=== PATIENT | female | born 1965 | race African-American/Black ===

== ENCOUNTER 2016-08-16 16:08 | Emergency (ER) | payer SELFPAY ==
[~2016-08-16] VITALS: Ht 170.2 cm; Wt 145.0 kg
[~2016-08-16 16:08] MED LIST: AMLO5 PO; DICL50TA3 PO; METF500T PO; ROBA750T PO
[2016-08-16 16:10] VITALS: BP 168/99; PULSE 91; RESP 16; TEMP 98.5; O2SAT 96
--- NOTE | 2016-08-16 17:14 | PD ---
HPI Chief Complaint: Musculoskeletal Complaint Time Seen by Provider: 17:14 Travel History International Travel<30 days: No Contact w/Intl Traveler<30days: No Traveled to known affect area: No History of Present Illness HPI 50-year-old female presents to the emergency Department with complaint of acute exacerbation of chronic low back pain with right-sided sciatica for the past 3 weeks. History of chronic low back pain since 1998. Symptoms are similar to past symptoms. Has history of sciatica also. 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 Denies traumatic injury. Denies encopresis, incontinence, saddle anesthesias. Denies paresthesias, loss of sensation, decreased range of motion, decreased strength to bilateral lower extremity. Is ambulatory with normal gait. Denies fever, chills, nausea, vomiting. Denies IV drug use. Denies cancer. Has tried ibuprofen, Tylenol, [id number] pain patches, [id number] topical rubs to the area with no relief of symptoms. No known allergies. History of hypertension and diabetes. No other modifying factors or associated signs and symptoms. PFSH Past Medical History Arthritis: No Asthma: Yes Blood Disorders: No Anxiety: Yes Depression: Yes Heart Rhythm Problems: No Cancer: No High Cholesterol: No Chest Pain: No Congestive Heart Failure: No COPD: No Cerebrovascular Accident: No Diabetes: Yes Diminished Hearing: No GERD: No Glaucoma: No Genitourinary: Yes (UTI AFTER HAVING HYSTERECTOMY) Headaches: No Hepatitis: No Hiatal Hernia: No Hypertension: Yes Psychiatric: Yes Reproductive: Yes Respiratory: Yes (ASTHMA RESOLVED) Immunizations Current: No Thyroid Disease: Yes PNEUMOCCOCAL Vaccine (Year): 2 ?: Not : 3 Para: 3 Ovarian Cysts: Yes Tubal Ligation: Yes Past Surgical History Abdominal Surgery: Yes Appendectomy: No Cardiac Surgery: No Section: Yes Cholecystectomy: No Ear Surgery: No Endocrine Surgery: No Eye Surgery: No Genitourinary Surgery: No Gynecologic Surgery: Yes (C SECTION, TUBAL LIG., HYSTERECTOMY) Hysterectomy: Yes Oral Surgery: No Thoracic Surgery: No Other Surgery: Yes (CARPAL) Social History Alcohol Use: Yes (SOCIALLY-"ALOT OF PARTIES") Tobacco Use: Yes (1 PACK EVERY 2 DAYS) Substance Use: No (DENIES) Allergies-Medications (Allergen,Severity, Reaction): Coded Allergies: No Known Allergies (Verified , 2/21/17) Reported Meds & Prescriptions Reported Meds & Active Scripts Active Ibuprofen 800 Mg Tab 800 Mg PO Q6HR PRN Robaxin (Methocarbamol) 500 Mg Tab 500 Mg PO QID PRN Diclofenac Sodium DR (Diclofenac Sodium) 50 Mg Tabdr 50 Mg PO TID Robaxin (Methocarbamol) 750 Mg Tab 1,500 Mg PO TID 7 Days Norvasc (Amlodipine Besylate) 5 Mg Tab 5 Mg PO DAILY Metformin (Metformin HCl) 500 Mg Tab 500 Mg PO BIDPC With meals Review of Systems Except as stated in HPI: all other systems reviewed are Neg Physical Exam Narrative GENERAL: Well-nourished, well-developed female patient, in no acute distress SKIN: Warm and dry. HEAD: Atraumatic. Normocephalic. EYES: Pupils equal and round. No scleral icterus. No injection or drainage. ENT: Mucosa pink and moist. Airway patent. NECK: Trachea midline. CARDIOVASCULAR: Regular rate. RESPIRATORY: No accessory muscle use. GASTROINTESTINAL: Obese. MUSCULOSKELETAL: Bilateral lower extremities supple and non-tense with 2+ pedal pulses and sensory intact; with full range of motion and 5/5 strength. Active dorsiflexion and extension of bilateral feet. Right straight leg raise is positive for low back pain. Ambulatory with normal gait in room. Sitting up in bed at 90. No obvious deformities. No clubbing. No cyanosis. No edema. BACK: No midline point tenderness on palpation of the lumbar spine. Tenderness on palpation of right iliosacral area. No obvious deformities. NEUROLOGICAL: Awake and alert. Oriented 3. No obvious cranial nerve deficits. Motor grossly within normal limits. Normal speech. Moves all extremities. 5/5 strength to all extremities. Sensory intact. PSYCHIATRIC: Appropriate mood and affect; insight and judgment normal. Data Data Last Documented VS Vital Signs Date Time Temp Pulse Resp B/P Pulse Ox O2 Delivery O2 Flow Rate FiO2 08/16/16 16:10 98.5 91 16 168/99 96 Orders Ketorolac Inj (Toradol Inj) (08/16/16 17:15) Orphenadrine Inj (Norflex Inj) (08/16/16 17:15) MDM Medical Decision Making Medical Screen Exam Complete: Yes Emergency Medical Condition: Yes Medical Record Reviewed: Yes Differential Diagnosis Acute exacerbation of chronic low back pain, sciatica, muscle spasms Narrative Course 50-year-old female, with history of chronic back pain, physical exam consistent with acute exacerbation of chronic low back pain and right-sided sciatica. Denies IV drug use. Denies cancer. Patient is afebrile nontoxic appearing. Denies fever, chills, nausea, vomiting. Patient is ambulatory with a normal gait. No midline point tenderness on palpation of the lumbar spine. Toradol and Norflex administered in the ER. Ibuprofen and Robaxin prescribed for home. Patient is medically cleared and stable for discharge. Discussed reasons to return to the emergency department. Instructed patient to follow up with primary care provider. Patient agrees with treatment plan. The patients vital signs are stable and the patient is stable for outpatient follow-up and treatment. Patient discharged home, stable and in no acute distress. Diagnosis Primary Impression: Acute exacerbation of chronic low back pain Additional Impression: Right-sided low back pain with sciatica Qualified Code: M54.41 - Right-sided low back pain with right-sided sciatica, unspecified chronicity Referrals: Primary Care Physician Patient Instructions: General Instructions, Sciatica (ED) Departure Forms: Tests/Procedures, Work Release Enter return to work date: Aug 18, 2016 Additional Instructions: Tylenol or ibuprofen as directed and as needed for pain Robaxin as prescribed and as needed for muscle spasms Heating pad and/or ice to affected area to reduce pain Avoid aggravating activities; increase activity as tolerated Follow-up with primary care provider Return to emergency department immediately with worsening of symptoms Med/Other Pt SpecificInfo: Prescription(s) given Scripts Ibuprofen 800 Mg [id number] Mg PO Q6HR PRN (PAIN) #30 TAB Ref 0 Prov:Felicity Rob 08/16/16 Methocarbamol (Robaxin)500 Mg [id number] Mg PO QID PRN (MUSCLE SPASM) #30 TAB Ref 0 Prov:Felicity Rob 08/16/16 Disposition: DISCHARGE HOME Condition: Stable Felicity Rob Aug 16, 2016 17:14
[2016-08-16] MEDS ORDERED: ORPHENADRINE INJ 60 MG/2 ML AMP IM ONE (17:15)
[2016-08-16] MEDS ORDERED: KETOROLAC TROMETHAMINE 60 MG/2 ML (IM) VIAL IM ONE (17:15)
[2016-08-16] MEDS ORDERED: IBUP800T23 PO (17:18)
[2016-08-16] MEDS ORDERED: ROBA500T PO (17:18)
== END 2016-08-16 17:43 | disposition home or self-care (01) ==
LOC: NEPB 16:08
DX: M54.5 Low back pain (principal); M54.41 Lumbago with sciatica, right side; G89.29 Other chronic pain; I10 Essential (primary) hypertension; E11.9 Type 2 diabetes mellitus without complications; J45.909 Unspecified asthma, uncomplicated; F17.210 Nicotine dependence, cigarettes, uncomplicated
CPT/HCPCS: 96372; 99283; J1885; J2360

== ENCOUNTER 2016-11-28 07:14 | Emergency (ER) | payer BC ==
[~2016-11-28] VITALS: Ht 170.2 cm; Wt 140.0 kg
[~2016-11-28 07:14] MED LIST changes: +IBUP800T23 PO; +ROBA500T PO
[2016-11-28 07:17] VITALS: BP 175/115; PULSE 85; RESP 15; TEMP 98.6; O2SAT 99
--- NOTE | 2016-11-28 07:29 | PD ---
HPI Chief Complaint: Respiratory Symptoms Time Seen by Provider: 07:28 Travel History International Travel<30 days: No Contact w/Intl Traveler<30days: No Traveled to known affect area: No History of Present Illness HPI 50-year-old female came to the emergency room with history of cough and intermittent shortness of breath going on for almost 1 month. Patient has not seeked medical attention up until now. Patient says that cough has been intermittently productive and yellowish to tannish in color sputum. No history of fever or chills. No history of chest pain. Patient has been using her daughter's inhaler which bring some relief. 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 She has history of diabetes and hypertension but has not taken her medication for more than 6 months due to lack of medical insurance. She has not seen a primary care physician for almost 4 years for the same reason. However currently she did get her insurance back and is in the process of finding a primary care physician. Vital signs showed hypertension in triage. She does not appear to be in any significant distress as I'm talking to her. Patient is a current smoker. [facility] Past Medical History Narrative Medical List of her past medical, surgical, social and family history as reviewed from the nursing note. Arthritis: No Asthma: Yes Blood Disorders: No Anxiety: Yes Depression: Yes Heart Rhythm Problems: No Cancer: No High Cholesterol: No Chest Pain: No Congestive Heart Failure: No COPD: No Cerebrovascular Accident: No Diabetes: Yes Diminished Hearing: No GERD: No Glaucoma: No Genitourinary: Yes (UTI AFTER HAVING HYSTERECTOMY) Headaches: No Hepatitis: No Hiatal Hernia: No Hypertension: Yes Psychiatric: Yes Reproductive: Yes Respiratory: Yes Immunizations Current: No Thyroid Disease: Yes PNEUMOCCOCAL Vaccine (Year): 2 : 3 Para: 3 Ovarian Cysts: Yes Tubal Ligation: Yes Past Surgical History Abdominal Surgery: Yes Appendectomy: No Cardiac Surgery: No Section: Yes Cholecystectomy: No Ear Surgery: No Endocrine Surgery: No Eye Surgery: No Genitourinary Surgery: No Gynecologic Surgery: Yes (C SECTION, TUBAL LIG., HYSTERECTOMY) Hysterectomy: Yes Oral Surgery: No Thoracic Surgery: No Other Surgery: Yes (CARPAL) Social History Alcohol Use: Yes (SOCIALLY-"ALOT OF PARTIES") Tobacco Use: Yes (1 PACK EVERY 2 DAYS) Substance Use: No (DENIES) Allergies-Medications (Allergen,Severity, Reaction): Coded Allergies: No Known Allergies (Verified , 11/28/16) Comments No known drug allergies. Reported Meds & Prescriptions Reported Meds & Active Scripts Active Norvasc (Amlodipine Besylate) 5 Mg Tab 5 Mg PO DAILY Metformin (Metformin HCl) 500 Mg Tab 500 Mg PO BIDPC With meals Zithromax Z-Akshat (Azithromycin) 250 Mg Dspk 250 Mg PO DIRECTED 500 MG (2 tabs) day 1, then 1 tab days 2-5. Prednisone 20 Mg Tab 20 Mg PO BID 5 Days Ventolin Hfa 18 GM Inh (Albuterol Sulfate) 90 Mcg/Act Aer 2 Puff INH Q4-6H PRN Ibuprofen 800 Mg Tab 800 Mg PO Q6HR PRN Narrative Medication List of her home medications reviewed from the nursing note. Review of Systems Except as stated in HPI: all other systems reviewed are Neg Physical Exam Narrative GENERAL: Awake, alert, no obvious distress, morbidly obese SKIN: Focused skin assessment warm/dry. HEAD: Atraumatic. Normocephalic. EYES: Pupils equal and round. No scleral icterus. No injection or drainage. ENT: No nasal bleeding or discharge. Mucous membranes pink and moist. No postnasal drip. NECK: Trachea midline. No JVD. CARDIOVASCULAR: Regular rate and rhythm. No murmur appreciated. RESPIRATORY: No accessory muscle use. Clear to auscultation. Breath sounds equal bilaterally. GASTROINTESTINAL: Abdomen soft, non-tender, nondistended. Hepatic and splenic margins not palpable. MUSCULOSKELETAL: No obvious deformities. No clubbing. No cyanosis. No edema. NEUROLOGICAL: Awake and alert. No obvious cranial nerve deficits. Motor grossly within normal limits. Normal speech. PSYCHIATRIC: Appropriate mood and affect; insight and judgment normal. Data Data Last Documented VS Vital Signs Date Time Temp Pulse Resp B/P Pulse Ox O2 Delivery O2 Flow Rate FiO2 11/28/16 10:31 78 16 96 11/28/16 10:09 Nasal Cannula 2 11/28/16 10:09 148/80 11/28/16 08:37 21 11/28/16 07:17 98.6 Orders Complete Blood Count With Diff (11/28/16 08:01) Basic Metabolic Panel (Bmp) (11/28/16 08:01) B-Type Natriuretic Peptide (11/28/16 08:01) Troponin I (11/28/16 08:01) Iv Access Insert/Monitor (11/28/16 08:01) Electrocardiogram (11/28/16 08:01) Ecg Monitoring (11/28/16 08:01) Oximetry (11/28/16 08:01) Oxygen Administration (11/28/16 08:01) Chest, Single Ap (11/28/16 08:01) Sodium Chloride 0.9% Flush (Ns Flush) (11/28/16 08:15) Albuterol-Ipratropium Neb (Duoneb Neb) (11/28/16 08:15) Labs Laboratory Tests Test 11/28/16 08:25 White Blood Count 12.0 TH/MM3 Red Blood Count 4.85 MIL/MM3 Hemoglobin 13.1 GM/DL Hematocrit 40.3 % Mean Corpuscular Volume 83.1 FL Mean Corpuscular Hemoglobin 27.0 PG Mean Corpuscular Hemoglobin 32.5 % Concent Red Cell Distribution Width 13.8 % Platelet Count 199 TH/MM3 Mean Platelet Volume 9.3 FL Neutrophils (%) (Auto) 49.1 % Lymphocytes (%) (Auto) 39.4 % Monocytes (%) (Auto) 6.1 % Eosinophils (%) (Auto) 4.4 % Basophils (%) (Auto) 1.0 % Neutrophils # (Auto) 5.9 TH/MM3 Lymphocytes # (Auto) 4.7 TH/MM3 Monocytes # (Auto) 0.7 TH/MM3 Eosinophils # (Auto) 0.5 TH/MM3 Basophils # (Auto) 0.1 TH/MM3 CBC Comment AUTO DIFF Differential Comment AUTO DIFF CONFIRMED Sodium Level 140 MEQ/L Potassium Level 4.8 MEQ/L Chloride Level 107 MEQ/L Carbon Dioxide Level 26.2 MEQ/L Anion Gap 7 MEQ/L Blood Urea Nitrogen 16 MG/DL Creatinine 0.72 MG/DL Estimat Glomerular Filtration 103 ML/MIN Rate Random Glucose 102 MG/DL Calcium Level 9.5 MG/DL Troponin I LESS THAN 0.02 NG/ML B-Type Natriuretic Peptide 3 PG/ML [facility] [place] Medical Decision Making Medical Screen Exam Complete: Yes Emergency Medical Condition: Yes Medical Record Reviewed: Yes Interpretation(s) Twelve-lead EKG was reviewed by me. Normal sinus rhythm, normal axis, nonspecific ST-T wave changes. Heart rate of 75 bpm. Differential Diagnosis Congestive heart failure, bronchitis, COPD exacerbation, pneumonia Narrative Course 8:36 AM blood test was ordered. Awaiting for the test results. Patient was given a dose of DuoNeb meanwhile. Chest x-rays within normal limit. 10:12 AM blood test results of back and patient has slight leukocytosis and eosinophilia. Rest of the test results are within acceptable limits. Patient will be discharged home on bronchodilator, steroid and Z-Akshat. Procedures EKG Prior to Arrival: No Diagnosis Primary Impression: Bronchitis Additional Impressions: COPD exacerbation Needs smoking cessation education Morbid obesity Qualified Code: E66.01 - Morbid obesity, unspecified obesity type Referrals: Primary Care Physician 3 days Additional Instructions: Please return to the ER if the condition worsens or any other concerns. Quit smoking in order to feel better. Take the medication as per the prescription direction. Take the inhaler 2 puffs every 4-6 hours till symptoms subside. Follow-up with your primary care in couple days. Med/Other Pt SpecificInfo: Prescription(s) given Scripts Amlodipine (Norvasc)5 Mg Tab5 Mg PO DAILY #30 TAB Ref 0 Prov:Diallo Najera MD 11/28/16 Metformin 500 Mg [id number] Mg PO BIDPC #60 TAB Ref 0 With meals Prov:Diallo Najera MD 11/28/16 Azithromycin (Zithromax Z-Akshat)250 Mg [id number] Mg PO DIRECTED #1 DSPK Ref 0 500 MG (2 tabs) day 1, then 1 tab days 2-5. Prov:Diallo Najera MD 11/28/16 Prednisone 20 Mg Tab20 Mg PO BID 5 Days Ref 0 Prov:Diallo Najera MD 11/28/16 Albuterol 18 GM Inh (Ventolin Hfa 18 GM Inh)90 Mcg/Act Aer2 Puff INH Q4-6H PRN ( SHORTNESS OF BREATH) #1 INHALER Ref 0 Prov:Diallo Najera MD 11/28/16 Disposition: 01 DISCHARGE HOME Condition: Stable Diallo Najera MD Nov 28, 2016 07:28
[2016-11-28 07:38] VITALS: BP 180/109; PULSE 77; RESP 16; O2SAT 99
[2016-11-28] MEDS ORDERED: RESP: ALBUTEROL 2.5 MG/IPRATROPIUM 0.5 MG NEB (SCH) INH ONE (08:15)
[2016-11-28] MEDS ORDERED: SODIUM CHLORIDE 0.9% FLUSH 10 ML FLUSH IVF PRN (08:15)
--- NOTE | 2016-11-28 08:23 | RADRPT ---
EXAM DATE/TIME: 11/28/2016 08:04 [facility] COMPARISON: No previous studies available for comparison. INDICATIONS : Short of breath for one month, smoker, no chest surgery MEDICAL HISTORY : asthma SURGICAL HISTORY : None. ENCOUNTER: Initial ACUITY: 1 month PAIN SCORE: 0/10 LOCATION: Bilateral chest FINDINGS: A single view of the chest demonstrates the lungs to be symmetrically aerated without evidence of mas s, infiltrate or effusion. The cardiomediastinal contours are unremarkable. Osseous structures are intact. CONCLUSION: 1. No acute cardiopulmonary findings. Noé White MD on November 28, 2016 at 8:21 Board Certified Radiologist. This report was verified electronically.
[2016-11-28 08:37] VITALS: O2SAT 97
[2016-11-28 09:16] LABS: AUTOMATED NEUTROPHIL # 5.9 TH/MM3 (1.8-7.7); BASOPHIL # 0.1 TH/MM3 (0-0.2); EOSINOPHIL # 0.5 TH/MM3 (0-0.4); EOSINOPHIL % 4.4 % (0.0-4.0); HEMATOCRIT 40.3 % (35.0-46.0); LYMPH % 39.4 % (9.0-44.0); LYMPHOCYTE # 4.7 TH/MM3 (1.0-4.8); MEAN CELL VOLUME 83.1 FL (80.0-100.0); MEAN CORPUSCULAR HGB CONC 32.5 % (32.0-36.0); MONO % 6.1 % (0.0-8.0); NEUT % 49.1 % (16.0-70.0); PLATELET COUNT 199 TH/MM3 (150-450); RED BLOOD COUNT 4.85 MIL/MM3 (4.00-5.30); RED CELL DISTRIBUTION WIDTH 13.8 % (11.6-17.2)
[2016-11-28 09:26] LABS: HEMO FLAGS AUTO DIFF
[2016-11-28 09:38] LABS: ANION GAP 7 MEQ/L (5-15); BICARBONATE 26.2 MEQ/L (21.0-32.0); BLOOD UREA NITROGEN 16 MG/DL (7-18); CHLORIDE 107 MEQ/L (98-107); GLOMERULAR FILTRATION RATE 103 ML/MIN (>89); SODIUM (NA) 140 MEQ/L (136-145)
[2016-11-28 09:39] LABS: POTASSIUM 4.8 MEQ/L (3.5-5.1)
[2016-11-28 09:57] LABS: SCAN/DIFF AUTO DIFF CONFIRMED
[2016-11-28 10:09] VITALS: BP 148/80; PULSE 62; RESP 14; O2SAT 100
[2016-11-28] MEDS ORDERED: ZITHTAB PO (10:15)
[2016-11-28] MEDS ORDERED: VENTAER INH (10:15)
[2016-11-28] MEDS ORDERED: PRED20 PO (10:15)
[2016-11-28] MEDS ORDERED: METF500T PO (10:24)
[2016-11-28] MEDS ORDERED: AMLO5 PO (10:24)
--- NOTE | 2016-11-29 21:49 | EKG ---
Date Performed: 11/28/2016 Time Performed: 08:17:09 PTAGE: 50 years EKG: Sinus rhythm WITH MARKED SINUS ARRHYTHMIA Since previous tracing, no significant change noted BORDERLINE ECG PREVIOUS TRACING : 12/17/2015 20.55 DOCTOR: Gurinder Ervin Interpretating Date/Time 11/29/2016 21:47:37
== END 2016-11-28 10:32 | disposition home or self-care (01) ==
LOC: NEPC 07:14
DX: J44.1 Chronic obstructive pulmonary disease with (acute) exacerbation (principal); F17.210 Nicotine dependence, cigarettes, uncomplicated; E11.9 Type 2 diabetes mellitus without complications; E66.01 Morbid (severe) obesity due to excess calories; J45.909 Unspecified asthma, uncomplicated; I10 Essential (primary) hypertension; Z79.84 Long term (current) use of oral hypoglycemic drugs
CPT/HCPCS: 71010; 80048; 83880; 84484; 85025; 93005; 94664; 99285

== ENCOUNTER 2017-01-13 12:51 | Emergency (ER) | payer BC ==
[~2017-01-13] VITALS: Ht 170.2 cm; Wt 143.0 kg
[~2017-01-13 12:51] MED LIST changes: -DICL50TA3 PO; +PRED20 PO; -ROBA500T PO; -ROBA750T PO; +VENTAER INH; +ZITHTAB PO
[2017-01-13 12:52] VITALS: BP 151/83; PULSE 81; RESP 16; TEMP 98.2; O2SAT 98
[2017-01-13] MEDS ORDERED: METF1000 PO (14:42)
--- NOTE | 2017-01-13 15:05 | PD ---
HPI Chief Complaint: Injury Time Seen by Provider: 14:33 Travel History International Travel<30 days: No Contact w/Intl Traveler<30days: No Traveled to known affect area: No History of Present Illness HPI 51-year-old female came to the emergency room because of her right ring finger nail is falling off. Patient had a nail bed injury couple weeks ago. Since then the nail has slowly started to and has been lifting off the nailbed. It still attached to the base of the nailbed. However she is here because it has been bothering her. [facility] Past Medical History Narrative Medical List of her past medical, surgical, social and family history is reviewed from the nursing note. Arthritis: No Asthma: Yes Blood Disorders: No Anxiety: Yes Depression: Yes Heart Rhythm Problems: No Cancer: No High Cholesterol: Yes Chest Pain: No Congestive Heart Failure: No COPD: No Cerebrovascular Accident: No Diabetes: Yes Diminished Hearing: No GERD: No Glaucoma: No Genitourinary: Yes (UTI AFTER HAVING HYSTERECTOMY) Headaches: No Hepatitis: No Hiatal Hernia: No Hypertension: Yes Psychiatric: Yes Reproductive: Yes Respiratory: Yes Immunizations Current: No Thyroid Disease: Yes PNEUMOCCOCAL Vaccine (Year): 2 ?: Not : 3 Para: 3 Ovarian Cysts: Yes Tubal Ligation: Yes Past Surgical History Abdominal Surgery: Yes Appendectomy: No Cardiac Surgery: No Section: Yes Cholecystectomy: No Ear Surgery: No Endocrine Surgery: No Eye Surgery: No Genitourinary Surgery: No Gynecologic Surgery: Yes Hysterectomy: Yes (2008,2009) Oral Surgery: No Thoracic Surgery: No Other Surgery: Yes (CARPAL) Social History Alcohol Use: Yes (2X PER WEEK ) Tobacco Use: Yes Substance Use: No Allergies-Medications (Allergen,Severity, Reaction): Coded Allergies: No Known Allergies (Verified , 11/28/16) Comments No known drug allergies. Reported Meds & Prescriptions Reported Meds & Active Scripts Active Norvasc (Amlodipine Besylate) 5 Mg Tab 5 Mg PO DAILY Ventolin Hfa 18 GM Inh (Albuterol Sulfate) 90 Mcg/Act Aer 2 Puff INH Q4-6H PRN Narrative Medication List of her home medications reviewed from the nursing note. Review of Systems Except as stated in HPI: all other systems reviewed are Neg Physical Exam Narrative GENERAL: Awake, alert, no obvious distress SKIN: Focused skin assessment warm/dry. HEAD: Atraumatic. Normocephalic. EYES: Pupils equal and round. No scleral icterus. No injection or drainage. ENT: No nasal bleeding or discharge. Mucous membranes pink and moist. NECK: Trachea midline. No JVD. CARDIOVASCULAR: Regular rate and rhythm. No murmur appreciated. RESPIRATORY: No accessory muscle use. Clear to auscultation. Breath sounds equal bilaterally. GASTROINTESTINAL: Abdomen soft, non-tender, nondistended. Hepatic and splenic margins not palpable. MUSCULOSKELETAL: No obvious deformities. No clubbing. No cyanosis. No edema. Right ring finger nail has lifted of majority of the nail bed but still attached 0.5 cm to the germinal matrix. NEUROLOGICAL: Awake and alert. No obvious cranial nerve deficits. Motor grossly within normal limits. Normal speech. PSYCHIATRIC: Appropriate mood and affect; insight and judgment normal. Data Data Last Documented VS Vital Signs Date Time Temp Pulse Resp B/P Pulse Ox O2 Delivery O2 Flow Rate FiO2 01/13/17 12:52 98.2 81 16 151/83 98 MDM Medical Decision Making Medical Screen Exam Complete: Yes Emergency Medical Condition: Yes Medical Record Reviewed: Yes Differential Diagnosis Nail avulsion secondary to nail bed injury Narrative Course 3:07 PM have asked the wen to keep the finger wrapped with a Band-Aid so that the nail doesn't keep getting caught. However the nail will eventually fall and just let the nature take its course. There is a germinal matrix that the the nail is trying to protect so that the nail can come out. Procedures EKG Prior to Arrival: No Diagnosis Primary Impression: Nail atrophy Referrals: Primary Care Physician Additional Instructions: Please keep the finger wrapped with a Band-Aid so that the nail doesn't keep getting caught on different things. Eventually the nail is going to fall. Currently he is trying to protect the nail bed and it should be left as is and not trying to be pulled out. Med/Other Pt SpecificInfo: No Change to Meds Disposition: 01 DISCHARGE HOME Condition: Stable Diallo Najera MD Jan 13, 2017 15:05
== END 2017-01-13 15:21 | disposition home or self-care (01) ==
LOC: NEPD 12:51
DX: L60.3 Nail dystrophy (principal); Z72.0 Tobacco use; E11.9 Type 2 diabetes mellitus without complications; E78.00 Pure hypercholesterolemia, unspecified; I10 Essential (primary) hypertension
CPT/HCPCS: 99281

== ENCOUNTER 2017-07-19 19:28 | Emergency (ER) | payer BC ==
[~2017-07-19] VITALS: Ht 213.4 cm; Wt 143.2 kg
[~2017-07-19 19:28] MED LIST changes: -IBUP800T23 PO; +METF1000 PO; -METF500T PO; -PRED20 PO; -ZITHTAB PO
[2017-07-19 19:30] VITALS: BP 173/89; PULSE 89; RESP 16; TEMP 99.9; O2SAT 98
[2017-07-19 21:18] VITALS: PULSE 95; RESP 18; TEMP 100; O2SAT 97
[2017-07-19] MEDS ORDERED: LOSA50TA PO (21:22)
[2017-07-19] MEDS ORDERED: ASPI-516 CHEW (21:22)
--- NOTE | 2017-07-19 21:28 | PD ---
Physical Exam Date Seen by Provider: Jul 19, 2017 Narrative Patient presents with cold and flu. She also has folliculitis on her chin. Data Data Last Documented VS Vital Signs Date Time Temp Pulse Resp B/P (MAP) Pulse Ox O2 Delivery O2 Flow Rate FiO2 07/19/17 21:18 100.0 95 18 97 Room Air Orders Orders Ibuprofen (Motrin) (07/19/17 21:30) MDM Supervised Visit with [facility]: Yes Narrative Course I, Dr. Kraft, have reviewed the advance practice practitioner's documentation and am in agreement, met with the patient face to face, made the diagnosis, and the medical decision making was done by me. *My assessment and Findings: This patient presents with cold and flu symptoms. She looks fine. Please see Magdaleno Thrasher PA-C's note for results of laboratory and radiographic evaluation, ED course, final diagnosis and disposition Linda Kraft MD Jul 19, 2017 21:28
--- NOTE | 2017-07-19 21:29 | PD ---
HPI Chief Complaint: Cold / Flu Symptoms Time Seen by Provider: 21:15 Travel History International Travel<30 days: No Contact w/Intl Traveler<30days: No Traveled to known affect area: No History of Present Illness HPI Patient comes in complaining of cold and flulike symptoms that began yesterday. Patient states started off with having a scratchy throat since developed fevers, body aches, headache, and dry nonproductive cough. Patient tried using [id number] medication that helped some. Denies anything making it worse. Denies any radiation of the pain. Patient also has concerns over early abscess or infection. Patient reports that she has to shave her chin and getting bumps about a week ago. Patient describes a pressure-like pain with them without radiation. Patient has been applying hot rags trying to squeeze them with no improvement of symptoms. Patient denies anything making it worse. PFSH Past Medical History Arthritis: No Asthma: Yes Blood Disorders: No Anxiety: Yes Depression: Yes Heart Rhythm Problems: No Cancer: No Cardiovascular Problems: Yes (HTN) High Cholesterol: Yes Chest Pain: No Congestive Heart Failure: No COPD: No Cerebrovascular Accident: No Diabetes: Yes Patient Takes Glucophage: Yes (metformin) Diminished Hearing: No GERD: No Glaucoma: No Genitourinary: Yes (UTI AFTER HAVING HYSTERECTOMY) Headaches: No Hepatitis: No Hiatal Hernia: No Hypertension: Yes Psychiatric: Yes Reproductive: Yes Respiratory: Yes Immunizations Current: No Thyroid Disease: Yes Tetanus Vaccination: Unknown Influenza Vaccination: No PNEUMOCCOCAL Vaccine (Year): 2 ?: Not : 3 Para: 3 Ovarian Cysts: Yes Tubal Ligation: Yes Past Surgical History Abdominal Surgery: Yes Appendectomy: No Cardiac Surgery: No Section: Yes Cholecystectomy: No Ear Surgery: No Endocrine Surgery: No Eye Surgery: No Genitourinary Surgery: No Gynecologic Surgery: Yes Hysterectomy: Yes (2008,2009) Oral Surgery: No Thoracic Surgery: No Other Surgery: Yes (CARPAL) Social History Alcohol Use: Yes (2X PER WEEK ) Tobacco Use: Yes Substance Use: No Allergies-Medications (Allergen,Severity, Reaction): Coded Allergies: No Known Allergies (Verified , 11/28/16) Reported Meds & Prescriptions Reported Meds & Active Scripts Active Bactrim DS (Sulfamethoxazole-Trimethoprim) 800-160 Mg Tab 1 Tab PO BID Keflex (Cephalexin) 500 Mg Cap 500 Mg PO Q8H Tamiflu (Oseltamivir Phosphate) 75 Mg Cap 75 Mg PO BID 5 Days Norvasc (Amlodipine Besylate) 5 Mg Tab 5 Mg PO DAILY Ventolin Hfa 18 GM Inh (Albuterol Sulfate) 90 Mcg/Act Aer 2 Puff INH Q4-6H PRN Reported Aspirin 81 Mg Chew 81 Mg CHEW ONCE Losartan (Losartan Potassium) 50 Mg Tab 50 Mg PO DAILY Metformin (Metformin HCl) 1,000 Mg Tab 1,000 Mg PO BIDPC With meals Review of Systems Except as stated in HPI: all other systems reviewed are Neg Physical Exam Narrative GENERAL: Well-developed, overly nourished, in no acute distress, and non-ill appearing. SKIN: 3 small bumps noted on the submandibular. They're indurated without fluctuation or crepitus. They are tender to palpation. HEAD: Atraumatic. Normocephalic. EYES: Pupils equal and round. EOMI. No scleral icterus. No injection or drainage. ENT: No nasal bleeding or discharge. Mucous membranes pink and moist. Tympanic membranes pearly alaniz bilaterally. Posterior pharynx mildly erythematous. Uvula is midline. No tenderness to sinuses palpation. NECK: Trachea midline. No cervical lymphadenopathy. Supple. No nuclear rigidity. CARDIOVASCULAR: Regular rate and rhythm. No murmur appreciated. RESPIRATORY: No accessory muscle use. No respiratory distress. Clear to auscultation. Breath sounds equal bilaterally. MUSCULOSKELETAL: No obvious deformities. No clubbing. No cyanosis. No edema. Full range of motion. NEUROLOGICAL: Awake and alert. No obvious cranial nerve deficits. Motor grossly within normal limits. Normal speech. PSYCHIATRIC: Appropriate mood and affect; insight and judgment normal. Data Data Last Documented VS Vital Signs Date Time Temp Pulse Resp B/P (MAP) Pulse Ox O2 Delivery O2 Flow Rate FiO2 07/19/17 21:40 07/19/17 21:18 100.0 95 18 97 Room Air Orders Orders Ibuprofen (Motrin) (07/19/17 21:30) Ed Discharge Order (07/19/17 21:44) [facility] Medical Decision Making Medical Screen Exam Complete: Yes Emergency Medical Condition: Yes Differential Diagnosis Influenza, URI, strep pharyngitis, viral pharyngitis, abscess, cellulitis, folliculitis Narrative Course Patient looks great. Patients symptom complex is consistent with Influenza, or flu-like illness. The patient is tolerating fluids and is well hydrated. There is no evidence to suggest secondary infection (pneumonia, sepsis/bacteremia, etc.) at this time. I discussed with the patient, diagnosis, and plan of care and to follow up with the patients primary physician. I discussed with the patient regarding testing, even if rapid influenza negative, I would suspect false negative. I discussed with the patient initiating Tamiflu and the patient agreed with plan. The patient was instructed to return if the worsens in anyway , especially if not tolerating fluids, increased pain or swelling, difficulty swallowing or breathing, or as needed. The patient agreed with plan. The patient has no evidence of obvious abscess at this time. The patient will be discharged on antibiotics for cellulitis with possible early/immature abscess. Clinical suspicion, diagnosis and care management was discussed. The patient was given signs and symptoms warnings for worsening infection, such as spreading of redness, increasing pain, and/or swelling, associated heat, pus or fever and instructed to return immediately if these signs or symptoms worsen. The patient is to return in 2 days for recheck for maturity. Sooner if worsens or as needed. The patient agrees with plan. Patient in no obvious distress upon re-evaluation. Discussed patient with Dr. Kraft, who saw and evaluated the patient and is in agreement with plan of care and disposition.. Any questions/concerns in reference to patient diagnosis/ condition discussed and clarified prior to patient's discharge. Reinforced sheer importance of close follow up with patient's primary physician or primary care clinic. Instructed patient to return to ED immediately, if symptoms return/ worsen. Patient showed understanding of above instructions. Further instructions and recommendations were detailed in discharge paperwork. Patient ambulated without difficulty out of ED at discharge. Diagnosis Primary Impression: Flu-like symptoms Additional Impression: Cellulitis Qualified Codes: L03.211 - Cellulitis of face Referrals: [facility] Patient Instructions: Cellulitis (ED), General Instructions, Influenza (ED) Departure Forms: Work Release Enter return to work date: Jul 24, 2017 Additional Instructions: Follow-up with your primary care physician or return here in 2 days for recheck or here cellulitis. Follow-up through primary care doctor in 3-5 days for reevaluation of flu. Take all medication as prescribed. Apply warm compresses to affected area twice per as needed for pain. Use [id number] Tylenol and /or ibuprofen as needed for pain and/or fevers. Follow instructions on the packaging. Drink plenty of non-caffeinated and nonalcoholic fluids. Return to the emergency department if symptoms get worse. Med/Other Pt SpecificInfo: Prescription(s) given Scripts Sulfamethoxazole-Trimethoprim (Bactrim DS) 800-160 Mg Tab 1 TAB PO BID for Infection, #20 TAB 0 Refills Prov: Linda Kraft MD 07/19/17 Cephalexin (Keflex) 500 Mg Cap 500 MG PO Q8H for Infection, #30 CAP 0 Refills Prov: Linda Kraft MD 07/19/17 Oseltamivir (Tamiflu) 75 Mg Cap 75 MG PO BID for Mgmt Viral Infection for 5 Days, #10 CAP 0 Refills Prov: Linda Kraft MD 07/19/17 Disposition: 01 DISCHARGE HOME Condition: Stable Rubio Thrasher Jul 19, 2017 21:29
[2017-07-19] MEDS ORDERED: IBUPROFEN 600 MG TAB PO ONE (21:30)
[2017-07-19] MEDS ORDERED: BACT800T5 PO (21:34)
[2017-07-19] MEDS ORDERED: CEPH-460 PO (21:34)
[2017-07-19] MEDS ORDERED: OSEL75 PO (21:34)
== END 2017-07-19 21:53 | disposition home or self-care (01) ==
LOC: NEPC 19:28
DX: L03.211 Cellulitis of face (principal); R51 Headache; R05 Cough; J45.909 Unspecified asthma, uncomplicated; F41.9 Anxiety disorder, unspecified; F32.9 Major depressive disorder, single episode, unspecified; I10 Essential (primary) hypertension; E78.00 Pure hypercholesterolemia, unspecified; E11.9 Type 2 diabetes mellitus without complications
CPT/HCPCS: 99284

== ENCOUNTER 2017-09-10 18:31 | Emergency (ER) | payer BC ==
[~2017-09-10] VITALS: Ht 170.2 cm; Wt 140.0 kg
[~2017-09-10 18:31] MED LIST changes: +ASPI-516 CHEW; +BACT800T5 PO; +CEPH-460 PO; +LOSA50TA PO; +OSEL75 PO
[2017-09-10 19:04] VITALS: BP 166/87; PULSE 84; RESP 18; TEMP 98.6; O2SAT 100
[2017-09-10] MEDS ORDERED: ACYC800T PO (20:11)
--- NOTE | 2017-09-10 20:14 | PD ---
HPI Chief Complaint: Skin Problem Time Seen by Provider: 20:00 Travel History International Travel<30 days: No Contact w/Intl Traveler<30days: No Traveled to known affect area: No History of Present Illness HPI 51-year-old female presents for evaluation of area of rash on her arm. It started 2 days ago has a few small vesicle bumps which have since burst and coalesced. She reports a burning sensation as well as intense itching at the site. She has been using Benadryl but it makes her sleepy. She is concerned that she may have shingles. She denies any rash on her neck or proximal arm. She does not recall any bug bites or puncture wounds. She is otherwise healthy with no systemic symptoms. No other complaints at this time. PFSH Past Medical History Arthritis: No Asthma: Yes Blood Disorders: No Anxiety: Yes Depression: Yes Heart Rhythm Problems: No Cancer: No Cardiovascular Problems: Yes (HTN) High Cholesterol: Yes Chest Pain: No Congestive Heart Failure: No COPD: No Cerebrovascular Accident: No Diabetes: Yes Patient Takes Glucophage: Yes (09/10/2017 1000) Diminished Hearing: No GERD: No Glaucoma: No Genitourinary: Yes (UTI AFTER HAVING HYSTERECTOMY) Headaches: No Hepatitis: No Hiatal Hernia: No Hypertension: Yes Psychiatric: Yes Reproductive: Yes Respiratory: Yes Immunizations Current: No Thyroid Disease: Yes Tetanus Vaccination: < 5 Years Influenza Vaccination: No PNEUMOCCOCAL Vaccine (Year): 2 ?: Not : 3 Para: 3 Ovarian Cysts: Yes Tubal Ligation: Yes Past Surgical History Abdominal Surgery: Yes Appendectomy: No Cardiac Surgery: No Section: Yes Cholecystectomy: No Ear Surgery: No Endocrine Surgery: No Eye Surgery: No Genitourinary Surgery: No Gynecologic Surgery: Yes Hysterectomy: Yes Oral Surgery: No Thoracic Surgery: No Other Surgery: Yes (CARPAL) Social History Alcohol Use: Yes (2X PER WEEK ) Tobacco Use: Yes Substance Use: No Allergies-Medications (Allergen,Severity, Reaction): Coded Allergies: No Known Allergies (Verified Adverse Reaction, Unknown, 09/10/17) Reported Meds & Prescriptions Reported Meds & Active Scripts Active Acyclovir 800 Mg Tab 800 Mg PO 5 TIMES A DAY 7 Days Bactrim DS (Sulfamethoxazole-Trimethoprim) 800-160 Mg Tab 1 Tab PO BID Keflex (Cephalexin) 500 Mg Cap 500 Mg PO Q8H Tamiflu (Oseltamivir Phosphate) 75 Mg Cap 75 Mg PO BID 5 Days Norvasc (Amlodipine Besylate) 5 Mg Tab 5 Mg PO DAILY Ventolin Hfa 18 GM Inh (Albuterol Sulfate) 90 Mcg/Act Aer 2 Puff INH Q4-6H PRN Reported Aspirin 81 Mg Chew 81 Mg CHEW ONCE Losartan (Losartan Potassium) 50 Mg Tab 50 Mg PO DAILY Metformin (Metformin HCl) 1,000 Mg Tab 1,000 Mg PO BIDPC With meals Review of Systems General / Constitutional: No: Fever, Chills Skin: Positive Rash, Positive Itching, Positive Other (Positive for burning sensation) Physical Exam Narrative GENERAL: Well-developed well-nourished female no acute distress SKIN: Warm and dry. There is a patchy area of coalesced vesicular formation on the volar right forearm. This is somewhat excoriated from scratching. There is no erythema or induration. HEAD: Atraumatic. Normocephalic. EYES: Pupils equal and round. No scleral icterus. No injection or drainage. ENT: No nasal bleeding or discharge. Mucous membranes pink and moist. NECK: Trachea midline. No JVD. CARDIOVASCULAR: Regular rate and rhythm. No murmur appreciated. RESPIRATORY: No accessory muscle use. Clear to auscultation. Breath sounds equal bilaterally. Data Data Last Documented VS Vital Signs Date Time Temp Pulse Resp B/P (MAP) Pulse Ox O2 Delivery O2 Flow Rate FiO2 09/10/ 19:04 98.6 84 18 166/87 (113) 100 MDM Medical Decision Making Medical Screen Exam Complete: Yes Emergency Medical Condition: Yes Medical Record Reviewed: Yes Differential Diagnosis Shingles versus allergic contact dermatitis versus irritant contact dermatitis versus bug bite Narrative Course The patient has a patchy area of coalescing vesicle formation on the right forearm most consistent with shingles versus allergic contact dermatitis. She will be treated with acyclovir, [id number] antihistamines. Diagnosis Primary Impression: Vesicular rash Departure Forms: Tests/Procedures, Work Release Enter return to work date: Sep 13, 2017 Additional Instructions: Medication as prescribed. Take Zyrtec in the morning for itching and take Benadryl one time a night. Avoid scratching. Wash the area a couple times a day with soap and water and apply antibiotic cream. Return for any emergent medical conditions. Med/Other Pt SpecificInfo: Prescription(s) given, Wound Care Scripts Acyclovir (Acyclovir) 800 Mg Tab 800 MG PO 5 TIMES A DAY for Mgmt Viral Infection for 7 Days, TAB 0 Refills Prov: Franklin Martinez MD 09/10/17 Disposition: 01 DISCHARGE HOME Condition: Stable Prashant Oconnor Sep 10, 2017 20:14
== END 2017-09-10 20:37 | disposition home or self-care (01) ==
LOC: NEPD 18:31
DX: R23.8 Other skin changes (principal)
CPT/HCPCS: 99283